=== PATIENT | female | born 1990 | race Caucasian/White ===

== ENCOUNTER → 2016-07-31 | Outpatient (CLI) | payer BC | END | disposition home or self-care (01) | LOC: C.LAB1850 07:34 | PROVIDERS: ATTEND Obstetrics & Gynecology | DX: Z32.00 Encounter for pregnancy test, result unknown (principal) ==

== ENCOUNTER → 2016-08-19 | Outpatient (CLI) | payer BC ==
[2016-08-22 00:50] LABS: CHLAMYDIA TRACH RNA*** NOT DETECTED (NOT DETECTED); GC (NEIS GONORRHOEAE)RNA** NOT DETECTED (NOT DETECTED)
== END | disposition home or self-care (01) ==
LOC: C.LABSPEC 16:29
PROVIDERS: ATTEND Obstetrics & Gynecology
DX: Z34.90 Encounter for supervision of normal pregnancy, unspecified, unspecified trimester (principal)

== ENCOUNTER → 2016-10-07 | Outpatient (CLI) | payer BC ==
[~2016-10-07] MED LIST: PRENTAB26 PO; VALA500T60 PO
[2016-10-07 13:54] LABS: GTGD 50 Grams
== END | disposition home or self-care (01) ==
LOC: C.LAB1850 08:20
PROVIDERS: ATTEND Obstetrics & Gynecology
DX: Z34.01 Encounter for supervision of normal first pregnancy, first trimester (principal)

== ENCOUNTER → 2017-02-23 | Outpatient (CLI) | payer BC | END | disposition home or self-care (01) | LOC: C.LABSPEC 14:19 | PROVIDERS: ATTEND Obstetrics & Gynecology | DX: Z34.03 Encounter for supervision of normal first pregnancy, third trimester (principal) ==

== ENCOUNTER 2017-03-19 03:49 | Inpatient (IN) | payer BC ==
[~2017-03-19] VITALS: Ht 154.9 cm; Wt 85.0 kg
[2017-03-19] MEDS ORDERED: LACTATED RINGER'S 1000ML 1,000 ML IV PRN ×2 (05:25→07:54)
[2017-03-19] MEDS ORDERED: LACTATED RINGER'S 1000ML 1,000 ML IV SCH ×2 (05:25→07:54)
[2017-03-19 05:30] VITALS: Ht 154.9 cm; Wt 85.0 kg
[2017-03-19 06:12] LABS: HEMATOCRIT 39.1 % (37-47); MEAN CELL VOLUME 87.5 fL (80-100); MEAN CORPUSCULAR HEMOGLOBIN 29.5 pg (25-34); MEAN CORPUSCULAR HGB CONC 33.8 g/dl (32-36); PLATELET COUNT 205 K/uL (130-400); RED BLOOD COUNT 4.47 M/uL (4.2-5.4); WHITE BLOOD COUNT 12.66 K/uL (4.8-10.8)
[2017-03-19] MEDS ORDERED: PRENTAB26 PO (06:14)
[2017-03-19] MEDS ORDERED: VALA500T60 PO (06:14)
[2017-03-19] MEDS ORDERED: MISOPROSTOLTAB 50 MCG TAB PO ONE ×2 (08:00→12:30)
[2017-03-19] MEDS ORDERED: LACTATED RINGER'S 1000ML 500 ML IV PRN (19:02)
[2017-03-19] MEDS ORDERED: BUTORPHANOL TARTRATE 1 MG/ML VIAL IV PRN (19:15)
[2017-03-19] MEDS ORDERED: OXYTOCIN 30 UNITS/500ML NSS IV PRN (19:15)
[2017-03-19] MEDS ORDERED: BUPIVACAINE 0.25% 30 ML VIAL ONE (23:30)
[2017-03-19] MEDS ORDERED: FENTANYL CITRATE INJ 50 MCG/1 ML 2 ML VIAL ONE (23:31)
[2017-03-19] MEDS ORDERED: EpHEDrine SULFATE INJ 50 MG/ML AMP ONE (23:31)
[2017-03-19] MEDS ORDERED: FENTANYL 2MCG/ML ROPIV 1.25MG/ML 100ML BAG EPI ONE (23:31)
[2017-03-20] MEDS ORDERED: LACTATED RINGER'S 1000ML 500 ML IV PRN (00:05)
[2017-03-20] MEDS ORDERED: NALOXONE HCL INJ 1 MG in SODIUM CHLORIDE 0.9% 1000ML 1,000 ML IV PRN ×4 (00:05)
[2017-03-20] MEDS ORDERED: EpHEDrine SULFATE INJ 50 MG/ML AMP IV PRN (00:15)
[2017-03-20] MEDS ORDERED: DiphenhydrAMINE HCL 50 MG/ML VIAL IV PRN (00:15)
[2017-03-20] MEDS ORDERED: NALOXONE HCL INJ 0.4 MG/1 ML VIAL/CARP IV PRN (00:15)
[2017-03-20] MEDS ORDERED: PROMETHAZINE HCL INJ 25 MG in SODIUM CHLORIDE 0.9% 50ML 50 ML IV PRN (00:15)
[2017-03-20] MEDS ORDERED: ONDANSETRON INJ 2 MG/ML 2 ML VIAL IV PRN (00:15)
[2017-03-20] MEDS ORDERED: FENTANYL 2MCG/ML ROPIV 1.25MG/ML 100ML BAG EPI PRN (00:15)
[2017-03-20] MEDS ORDERED: NALBUPHINE HCL INJ 10 MG/ML AMP IV PRN (00:15)
[2017-03-20] MEDS ORDERED: ACETAMINOPHEN/CODEINE 300/30MG TAB PO PRN ×2 (05:30)
[2017-03-20] MEDS ORDERED: DIPHTHERIA/TETANUS/PERTUSSIS 0.5 ML SYR/VIAL IM. ONE (05:30)
[2017-03-20] MEDS ORDERED: SUPERCREAM 0.870 % 15GM JAR EXT PRN (05:30)
[2017-03-20] MEDS ORDERED: OXYTOCIN 30 UNITS/500ML NSS IV PRN (05:30)
[2017-03-20] MEDS ORDERED: BENZOCAINE 20% AER SPR 82.5 GM CAN EXT PRN (05:30)
[2017-03-20] MEDS ORDERED: OXYCODONE/ACETAMINOPHEN 5-325 TAB PO PRN (05:30)
[2017-03-20] MEDS ORDERED: LANOLIN OINT EXT PRN ×2 (05:30)
[2017-03-20] MEDS ORDERED: HYDROCORTISONE ACETATE 25 MG SUPP PR PRN (05:30)
[2017-03-20] MEDS ORDERED: ACETAMINOPHEN 325 MG TAB PO PRN (05:30)
--- NOTE | 2017-03-20 06:27 | DELIVERY SUMMARY ---
DATE OF OPERATION: 03/20/2017 Mrs. Parnell is a 26-year-old 1, para 1, general health is good. Her due date is 03/23/2017. Blood type is O positive, rubella immune, was started on Valtrex 500 mg twice a day since 36 weeks. The patient eventually developed elevated blood pressures, diastolics into the mid to high 90s. This was despite bed rest and two pressures taken 72 hours apart. By the time she was admitted to maternity, her membranes had ruptured spontaneously. After admission, she contracted on her own for several hours. Contractions started to slow down . She was given Cytotec 50 mcg p.o. In about 6 hours later, she was given another dose of Cytotec 50 mcg p.o. Eventually, she had 1 or 2 doses of Stadol 1 mg IV and she went on to receive epidural. Once she received the epidural, her contractions spaced out and she had no uterine tone. She was started on IV Pitocin. With IV Pitocin, she started to dilate. She went to full dilatation and then had a prolonged deceleration. The Pitocin had to be stopped and mask oxygen had to be given gradually with fluids running. Heart rate returned to normal; however, the contractions once again spaced out. She eventually was restarted on a lower dose of IV Pitocin 2 mcg. With this, she steadily pushed out a live female infant via direct occiput anterior position over an intact perineum. After delivery of the head, infant was suctioned through the mouth and the nose. There was a tight nuchal cord which had to be clamped and cut, and then the shoulders were delivered without difficulty. The infant was slightly depressed at with Apgars of 5 at 1 minute and 9 at 5 minutes. There was also some terminal meconium noted. Cord blood was taken. With IV Pitocin running, the placenta was removed intact. Inspection of the perineum revealed a right-sided sulcus laceration which was repaired with a running 2-0 Vicryl and then a midline perineal laceration, this was repaired with 2-0 Vicryl out and to beyond the hymenal ring. Then, a deep suture of 2-0 Vicryl was used to approximate the bulbocavernosus muscles, two deep sutures were used to approximate the perineal body and the rectal capsule and then a running subcuticular 2-0 Vicryl was used to approximate the perineal skin edges. Following this, sponges were removed the vagina. Vaginal exam including rectovaginal examination revealed no hematoma formation, stitches through the rectum or sponges in the vagina. Estimated blood loss was 400 mL. I attest to the content of the Intraoperative Record and any orders documented therein. Any exceptions are noted below. MTDD
--- NOTE | 2017-03-20 06:57 | Anesthesia Procedure Note ---
Anesthesia Epidural Removal Nt Date & Time Mar 20, 2017 at 06:57 Vital Signs Pain Intensity: 0.0 Notes Mental Status: alert / awake / arousable, participated in evaluation Nausea / Vomiting: adequately controlled Pain: adequately controlled Airway Patency, RR, SpO2: stable & adequate BP & HR: stable & adequate Hydration State: stable & adequate Neuraxial Anesthesia: was administered Anesthetic Complications: no major complications apparent, pt satisfied with anesthetic care Epidural: removed without complications, with tip intact
[2017-03-20 07:38] VITALS: BP 118/66; PULSE 110; TEMP 37.1
[2017-03-20] MEDS: DOCUSATE SODIUM 100 MG CAP PO SCH ×2 (08:44→19:58)
[2017-03-20] MEDS: PRENATAL VITAMIN TAB PO SCH (08:45)
[2017-03-20] MEDS: FERROUS SULFATE 325 MG TAB PO SCH (08:45)
[2017-03-20 11:38] VITALS: BP 121/70; PULSE 111; TEMP 36.9
[2017-03-20 17:30] VITALS: BP 149/94; PULSE 93; TEMP 36.8
[2017-03-20] MEDS: IBUPROFEN 600 MG TAB PO PRN (17:41)
[2017-03-20 19:45] VITALS: BP 129/78; PULSE 108; TEMP 36.7; O2SAT 97
[2017-03-21 00:10] VITALS: BP 118/67; PULSE 81; TEMP 36.7; O2SAT 97
[2017-03-21] MEDS: IBUPROFEN 600 MG TAB PO PRN ×4 (00:26→23:26)
[2017-03-21 04:10] VITALS: BP 114/76; PULSE 97; TEMP 36.6; O2SAT 98
[2017-03-21 07:07] LABS: HEMATOCRIT 30.9 % (37-47)
[2017-03-21 09:20] VITALS: BP 122/86; PULSE 96; TEMP 36.6; O2SAT 97
[2017-03-21] MEDS: FERROUS SULFATE 325 MG TAB PO SCH (09:24)
[2017-03-21] MEDS: DOCUSATE SODIUM 100 MG CAP PO SCH ×2 (09:24→19:49)
[2017-03-21] MEDS: PRENATAL VITAMIN TAB PO SCH (09:24)
--- NOTE | 2017-03-21 09:40 | Progress Note ---
Subjective Mar 21, 2017. Subjective conversation w/ patient Ambulation: ambulating normally Voiding: no voiding problems Passing Gas: Yes Diet Tolerance: Regular Diet Lochia: Small Feeding Type: Breast Feeding Review of Systems Constitutional: + fever Objective Vital Signs Date Time Temp Pulse Resp B/P (MAP) Pulse Ox O2 Delivery O2 Flow Rate FiO2 03/21/17 04:10 36.6 97 18 114/76 (89) 98 Room Air 03/21/17 00:10 36.7 81 16 118/67 (84) 97 Room Air 03/21/17 00:10 97 Room Air 03/20/17 19:45 36.7 108 16 129/78 (95) 97 Room Air 03/20/17 17:30 Room Air 03/20/17 17:30 36.8 93 20 149/94 (112) 03/20/17 11:38 36.9 111 18 121/70 (87) Physical Exam General Appearance: WELL-APPEARING Respiratory/Chest: lungs clear Abdomen: normal bowel sounds Fundus: Firm, Non-Tender Extremities: no pedal edema, no calf tenderness Laboratory Results Last 24 Hours Test 03/21/17 06:13 Hemoglobin 10.3 g/dL Hematocrit 30.9 % Assessment and Plan Post- Day#: 1
[2017-03-21 15:30] VITALS: BP 131/87; PULSE 93; TEMP 36.6; O2SAT 97
[2017-03-21] MEDS ORDERED: BISACODYL 5 MG TABEC PO SCH (20:00)
[2017-03-21 23:15] VITALS: BP 121/81; PULSE 80; TEMP 36.4; O2SAT 98
[2017-03-22] MEDS ORDERED: BISACODYL 10 MG SUPP PR PRN (07:00)
[2017-03-22 08:00] VITALS: BP 134/86; PULSE 92; TEMP 36.5; O2SAT 97
[2017-03-22] MEDS: FERROUS SULFATE 325 MG TAB PO SCH (08:08)
[2017-03-22] MEDS: PRENATAL VITAMIN TAB PO SCH (08:08)
[2017-03-22] MEDS: IBUPROFEN 600 MG TAB PO PRN (08:11)
[2017-03-22] MEDS: DOCUSATE SODIUM 100 MG CAP PO SCH (08:11)
--- NOTE | 2017-03-22 08:49 | Progress Note ---
Subjective Mar 22, 2017. Subjective conversation w/ patient Ambulation: ambulating normally Voiding: no voiding problems Passing Gas: Yes Diet Tolerance: Regular Diet Lochia: Small Feeding Type: Breast Feeding Review of Systems Constitutional: + fever Objective Vital Signs Date Time Temp Pulse Resp B/P (MAP) Pulse Ox O2 Delivery O2 Flow Rate FiO2 03/22/17 08:00 Room Air 03/22/17 08:00 36.5 92 20 134/86 (102) 97 Room Air 03/21/17 23:15 98 Room Air 03/21/17 23:15 36.4 80 18 121/81 (94) 98 Room Air 03/21/17 15:30 97 Room Air 03/21/17 15:30 36.6 93 18 131/87 (102) 97 Room Air 03/21/17 09:20 97 Room Air 03/21/17 09:20 36.6 96 16 122/86 (98) 97 Room Air Physical Exam General Appearance: WELL-APPEARING Respiratory/Chest: lungs clear Abdomen: normal bowel sounds, non tender Fundus: Firm, Non-Tender Extremities: no pedal edema, no calf tenderness Assessment and Plan Post- Day#: 2
--- NOTE | 2017-03-22 08:51 | Discharge Instructions ---
Discharge Instructions Date of Service Mar 22, 2017. Admission Reason for Admission: LABOR Discharge Discharge Diagnosis / Problem: ruptured membranes Discharge Goals Goal(s): Routine recovery after delivery Activity Recommendations Activity Limitations: as noted below . Instructions / Follow-Up Instructions / Follow-Up ACTIVITY RECOMMENDATIONS: * Gradual return to full activity over the next 2-3 weeks. * No lifting - nothing heavier than baby over the next 2-3 weeks. * Do not engage in vigorous exercise, sexual activity or sports until cleared by your physician. * Do not drive or operate any motorized equipment until cleared by your physician. * You may shower/bathe daily. DIET: Resume Previous Diet If Breast-feeding: * Increase caloric intake by 500 calories, eat 3 well balanced meals, 2 high protein snacks a day and drink 6-8 8oz. glasses of fluid per day. BREAST CARE: If you are not breast feeding: * Wear a supportive bra 24 hours a day for one to two weeks. * Avoid stimulating your breasts and nipples as much as possible during the first few weeks after delivery. * When taking a shower, have the warm water hit your back, not breasts. * When your breasts feel full, apply ice packs. Usually three to four times a day helps ease the discomfort. * Take a mild pain medication (Tylenol / Motrin) when you are uncomfortable. If breast feeding: * Use breast milk to lubricate nipples. Lansinoh cream may be used for sore nipples. You do not need to remove cream prior to breast feeding. If using a different brand of cream, check the label for directions regarding removal of cream prior to nursing. * Wear a supportive bra. * If having problems with breasts or breast feeding, call a human resources consultant or your health care provider. OVER THE COUNTER MEDICATION: * For discomfort or pain, you may use Acetaminophen (Tylenol), Ibuprofen (Advil ), or Naproxen (Aleve) following the package directions. * For constipation you may use Colace following the package directions. SPECIAL CARE INSTRUCTIONS: * Vaginal rest (no tampons, douching, intercourse) until after doctor 's visit. * control as discussed with doctor. * Verbalizes understanding of car seat law as reviewed with patient nursing. * Car Seat hand-out given and reviewed with patient by nursing. * Shaken baby information reviewed with patient by nursing. Call you doctor if: * Temperature greater than or equal to 100.4 degrees F or 38.0 degrees C. Take your temperature twice daily for a week. * Bleeding becomes heavier than the heaviest part of your period - saturating a sanitary pad within an hour. * Passing large clots. * Bleeding has a foul smelling odor. * Signs and symptoms of phlebitis: leg pain, warm, red or swollen area on leg. * "Baby Blues" lasting longer than two weeks. ++ If you have had a and incision has increased pain, redness, swelling, presence of any drainage, or if the incision starts to open up. If you have any questions or concerns, call your health care practitioner at [phone]. FOLLOW-UP VISIT: Please call the office at to schedule a 6 week examination. Current Hospital Diet Patient's current hospital diet: Regular Diet Discharge Diet Recommended Diet: Regular Diet Pending Studies Studies pending at discharge: no Medical Emergencies . Who to Call and When: Medical Emergencies: If at any time you feel your situation is an emergency, please call 911 immediately. . Non-Emergent Contact Non-Emergency issues call your: Tile Machine Operator Call Non-Emergent contact if: temperature is above 100.5 . . "Provider Documentation" section prepared by Jonathan Mahmood. . VTE Core Measure Inpt VTE Proph given/why not?: Treatment not indicated
[2017-03-22 11:00] VITALS: BP_DIAS 86; PULSE 92; TEMP 36.5
== END 2017-03-22 11:10 | disposition home or self-care (01) | DRG 775 ==
LOC: C.OPB 03:49 → C.LD 03:50 → C.OPB 05:29 → C.LD 07:17 → C.OBG 03-20 15:15
PROVIDERS: ADMIT Obstetrics & Gynecology; ATTEND Obstetrics & Gynecology
PROC: 10E0XZZ Delivery of Products of Conception, External Approach (ICD-10-PCS; principal; 2017-03-20)
PROC: 0HQ9XZZ Repair Perineum Skin, External Approach (ICD-10-PCS; principal; 2017-03-20)
DX: O69.81X0 Labor and delivery complicated by cord around neck, without compression, not applicable or unspecified (principal); Z37.0 Single live birth; Z3A.39 39 weeks gestation of pregnancy; O70.0 First degree perineal laceration during delivery

== ENCOUNTER → 2017-05-03 | Outpatient (CLI) | payer BC ==
[~2017-05-03] MED LIST changes: -VALA500T60 PO
== END | disposition home or self-care (01) ==
LOC: C.PAPS 16:40
PROVIDERS: ATTEND Obstetrics & Gynecology
DX: Z01.419 Encounter for gynecological examination (general) (routine) without abnormal findings (principal)

== ENCOUNTER → 2017-06-19 | Outpatient (CLI) | payer BC, OTHER | END | disposition home or self-care (01) | LOC: C.LABSPEC 16:26 | PROVIDERS: ATTEND Nurse Practitioner Family | DX: R50.9 Fever, unspecified (principal) ==